=== PATIENT | male | born 1985 | race Caucasian/White ===

== ENCOUNTER 2018-03-24 18:41 | Emergency (ER) | payer OTHER ==
[2018-03-24] MEDS ORDERED: methylPREDNISolone Sodium Succinate 125 MG/2 ML SDV IM ONE (19:37)
--- NOTE | 2018-03-24 19:37 | EDM.PDOC ---
ED HPI GENERAL MEDICAL PROBLEM - General Chief Complaint: ENT Problem Stated Complaint: SINUS PRESSURE Time Seen by Provider: 03/24/18 19:13 Source of Information: Reports: Patient History Limitations: Reports: No Limitations - History of Present Illness INITIAL COMMENTS - FREE TEXT/NARRATIVE: HISTORY AND PHYSICAL: History of present illness: 33-year-old male presenting emergency department with chief complaint of sinus congestion with associated fever, chills, nausea 3 days. Patient states that he has a history of sinus problems. Approximately 3 days ago he began to he also left-sided congestion his maxillary sinuses. This is progressed to the point where he is been having fevers and chills at night as well as nausea. He also has her today have a mild headache and states that this is happened many times in the past. He has not seen a primary care provider or her nose and throat specialist but has been to emergency room for treatment before. States that they were unsure of his diagnosis until they did a CAT scan approximately 4 years ago which showed extreme sinus congestion. 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 Otherwise he is generally healthy and currently denies any chest pain, palpitations, shortness of breath, syncopal episodes, or focal neurologic deficits. Exam patient has mild tenderness to palpation of the maxillary and periorbital sinuses on the left side. Otherwise exam is benign. Review of systems: As per history of present illness and below otherwise all systems reviewed and negative. Past medical history: As per history of present illness and as reviewed below otherwise noncontributory. Surgical history: As per history of present illness and as reviewed below otherwise noncontributory. Social history: No reported history of drug or alcohol abuse. Family history: As per history of present illness and as reviewed below otherwise noncontributory. Physical exam: HEENT: Atraumatic, normocephalic, pupils reactive, negative for conjunctival pallor or scleral icterus, mucous membranes moist, throat clear, neck supple, nontender, trachea midline. Lungs: Clear to auscultation, breath sounds equal bilaterally, chest nontender. Heart: S1S2, regular, negative for clicks, rubs, or JVD. Abdomen: Soft, nondistended, nontender. Negative for masses or hepatosplenomegaly. Negative for costovertebral tenderness. Pelvis: Stable nontender. Genitourinary: Deferred. Rectal: Deferred. Extremities: Atraumatic, negative for cords or calf pain. Neurovascular unremarkable. Neuro: Awake, alert, oriented. Cranial nerves II through XII unremarkable. Cerebellum unremarkable. Motor and sensory unremarkable throughout. Exam nonfocal. Diagnostics: Therapeutics: Solu-Medrol 125 mg IM, Augmentin 875 by mouth twice a day 7 days Impression: Acute on chronic sinusitis Plan: I explained at length this issue of chronic sinusitis with his acute episode. Secondary to symptoms I did prescribe him Augmentin as well as instructed him to use Flonase and Afrin 2 puffs each nostril twice daily maximum 5 days in a row. In addition, he should be using Zyrtec daily. I also instructed him to use a Felisa pot 3 times a day when he is symptomatic and twice daily when he is not symptomatic. In addition, I did give him information to call and follow with a primary care provider as well as an qualitative researcher as I believe that this may be beneficial for him for future evaluation. Patient was discharged in good condition with instructions to return to emergency department if he had any new or worsening symptoms. Definitive disposition and diagnosis as appropriate pending reevaluation and review of above. head Pain Score (Numeric/FACES): 10 - Related Data Allergies Allergy/AdvReac Type Severity Reaction Status Date / Time No Known Allergies Allergy Verified 03/24/18 19:14 Home Meds: Home Meds . [No Known Home Meds] 03/24/18 [History] Past Medical History HEENT History: Reports: Sinusitis Social & Family History - Family History Family Medical History: Noncontributory - Tobacco Use Smoking Status *Q: Never Smoker - Recreational Drug Use Recreational Drug Use: No ED ROS GENERAL - Review of Systems Review Of Systems: ROS reveals no pertinent complaints other than HPI. ED EXAM, GENERAL - Physical Exam Exam: See Below Course - Vital Signs Last Recorded V/S: Last Vital Signs Temp 97 F 03/24/18 19:00 Pulse 66 03/24/18 19:00 Resp 16 03/24/18 19:00 BP 115/66 03/24/18 19:00 Pulse Ox 98 03/24/18 19:00 - Orders/Labs/Meds Meds: Medications Discontinued Medications Generic Name Dose Route Start Last Admin Trade Name Freq PRN Reason Stop Dose Admin Methylprednisolone Sodium Succinate 125 mg 03/24/18 19:37 Solu-Medrol IM 03/24/18 19:38 ONETIME ONE Departure - Departure Time of Disposition: 19:49 Disposition: Home, Self-Care 01 Condition: Good Clinical Impression: Acute sinusitis Qualifiers: Sinusitis location: maxillary Recurrence: recurrent Qualified Code(s): J01.01 - Acute recurrent maxillary sinusitis - Discharge Information *PRESCRIPTION DRUG MONITORING PROGRAM REVIEWED*: Not Applicable *COPY OF PRESCRIPTION DRUG MONITORING REPORT IN PATIENT [place]: Not Applicable Referrals: PCP,None [Primary Care Provider] - Forms: ED Department Discharge Additional Instructions: My general discharge The following information is given to patients seen in the emergency department who are being discharged to home. This information is to outline your options for follow-up care. We provide all patients seen in our emergency department with a follow-up referral. The need for follow-up, as well as the timing and circumstances, are variable depending upon the specifics of your emergency department visit. If you don't have a primary care physician on staff, we will provide you with a referral. We always advise you to contact your personal physician following an emergency department visit to inform them of the circumstance of the visit and for follow-up with them and/or the need for any referrals to a consulting specialist. The emergency department will also refer you to a specialist when appropriate. This referral assures that you have the opportunity for follow-up care with a specialist. All of these measure are taken in an effort to provide you with optimal care, which includes your follow-up. Under all circumstances we always encourage you to contact your private physician who remains a resource for coordinating your care. When calling for follow-up care, please make the office aware that this follow-up is from your recent emergency room visit. If for any reason you are refused follow-up, please contact the [facility] Emergency Department at and asked to speak to the emergency department charge nurse. [facility] Primary [facility] [place] [address] [id number] [facility] Specialty Care - ENT Professional Building [address] [place] [address], [address] [place] [address] Please call and schedule a follow-up appointment with a primary care provider as well as try calling the ear, nose, and throat, ENT, specialist for further evaluation. Take medications as prescribed and as we discussed. Return to emergency department if any new or worsening symptoms.
== END 2018-03-24 20:00 | disposition home or self-care (01) ==
LOC: MW.ED 18:41
DX: J01.01 Acute recurrent maxillary sinusitis (principal)
CPT/HCPCS: 96372; 99283; J2930